=== PATIENT | male | born 1975 | race Asian ===

== ENCOUNTER 2018-02-07 14:41 | Emergency (ER) | payer BC ==
--- NOTE | 2018-02-07 15:13 | ER Document Report ---
ED Oral Problem - General Chief Complaint: Mouth Problem Stated Complaint: MOUTH LACERATION Time Seen by Provider: 02/07/18 14:52 Mode of Arrival: Ambulatory Information source: Patient TRAVEL OUTSIDE OF THE [place] IN LAST 30 DAYS: No - HPI Patient complains to provider of: Toothache Notes: Patient is here with complaints of right lower dental pain and gum swelling for the last few days. States that he has noticed some drainage from the gum area. It is painful to touch. He is having trouble eating due to pain. No fever. No nausea, vomiting. Difficulty breathing or swallowing. No chest pain or shortness of breath. No rash. No facial swelling. No other complaints at this time. - Related Data Allergies/Adverse Reactions: No Known Allergies Allergy (Unverified 08/05/14 16:15) Past Medical History - Social History Smoking Status: Unknown if Ever Smoked Family History: Reviewed & Not Pertinent - Immunizations Hx Diphtheria, Pertussis, Tetanus Vaccination: No Review of Systems - Review of Systems -: Yes All other systems reviewed and negative Physical Exam - Vital signs Vitals: Temp Pulse Resp BP Pulse Ox 98.2 F 81 14 146/96 H 98 02/07/18 14:47 02/07/18 14:47 02/07/18 14:47 02/07/18 14:47 02/07/18 14:47 - Notes Notes: GENERAL: alert, cooperative, nontoxic, no distress. HEAD: normocephalic, atraumatic EYES: conjunctiva pink without discharge, no external redness or swelling. EARS: no external swelling, no external redness NOSE: atraumatic, no external swelling MOUTH/THROAT: mucous membranes moist and pink. Small draining abscess to the gum of the right lower teeth in front of tooth #26. Mild tenderness to palpation of this area. There is no sublingual swelling or induration noted. No trismus or drooling. Posterior pharynx is unremarkable. No stridor. No facial or jaw swelling. NECK: soft, supple, full range of motion, no meningismus. CHEST: no distress, lungs clear and equal throughout. No wheezing, rales, rhonchi. CARDIAC: regular rate and rhythm, no murmur, normal capillary refill, normal pulses. BACK: full range of motion, no CVA tenderness. EXTREMITIES: full range of motion of all extremities. No redness, no swelling. NEURO: alert and oriented 3, no focal deficits, full range of motion of all extremities. PYSCH: appropriate mood, affect. Patient is cooperative. SKIN: pink, warm, dry, no rash. Course - Re-evaluation Re-evalutation: 02/07/18 15:09 Patient is nontoxic appearing with stable vitals. The patient has an abscess to the gumline of the right lower teeth at approximately tooth #26. No sign of Faraz's angina. No distress. Vitals are stable. Patient will be discharged home with Paulo-Vee K and Ultram. He will be given a list of dentists to follow- up with. Follow-up if not better in the next 2-3 days, sooner for worsening pain, fever, swelling, difficulty breathing or swallowing, or for any further concerns. The patient is noted to have elevated blood pressure during today's emergency department visit. The patient was informed of this finding. The patient was instructed that this may be related to pre-hypertension and requires further evaluation with a primary care provider. The patient has no hypertensive symptoms at this time. The patient's emergency department workup and current diagnosis were explained to the patient and or family. Follow-up instructions were provided. Medications if prescribed were discussed. Instructions for when to return to the emergency department including specific worrisome symptoms were discussed with the patient and/or family. - Vital Signs Vital signs: Temp Pulse Resp BP Pulse Ox 98.2 F 81 14 146/96 H 98 02/07/18 14:47 02/07/18 14:47 02/07/18 14:47 02/07/18 14:47 02/07/18 14:47 Discharge - Discharge Clinical Impression: Dental abscess Condition: Stable Disposition: HOME, SELF-CARE Instructions: Abscess ([facility]), Oral Narcotic Medication ([facility]), Dentist, Dental Infection or Abscess ([facility]) Additional Instructions: Take medication as prescribed. Follow-up with a dentist at the next available appointment. Follow-up sooner for increasing pain, fever, swelling, difficulty breathing or swallowing, persistent vomiting, or for any further concerns. Your blood pressure was elevated during today's visit. Have this rechecked with your doctor. The medication you were prescribed today may cause drowsiness. Do not drive or operate heavy machinery while taking this medication. Prescriptions: Tramadol HCl [Ultram 50 mg Tablet] 50 mg PO Q6HP PRN #12 tablet PRN Reason: Penicillin V Potassium [Penicillin Vk 500 mg Tablet] 500 mg PO QID #40 tablet Forms: Elevated Blood Pressure, Smoking Cessation Education Referrals: [facility] [Provider Group] - Follow up as needed [facility] [Provider Group] - Follow up as needed
[2018-02-07 15:25] VITALS: BP 143/89
== END 2018-02-07 15:20 | disposition home or self-care (01) ==
LOC: ER 14:41
DX: K04.7 Periapical abscess without sinus (principal)
CPT/HCPCS: 99282